=== PATIENT | male | born 1955 | race Caucasian/White ===

== ENCOUNTER 2022-07-29 16:20 | Outpatient (CLI) | payer MEDICARE, SELFPAY ==
--- NOTE | ~2022-07-29 | MR_ITS ---
EXAMINATION: MR knee RT wo con DATE: 07/29/2022 16:57 INDICATION: Chronic right knee pain. TECHNIQUE: Magnetic resonance imaging (MRI) of the right knee was performed without intravenous contr ast. Sequences included axial PD-weighted FS FSE, coronal PD-weighted FSE and PD-weighted FS FSE, sag ittal PD-weighted FSE, and sagittal T2-weighted FS FSE. COMPARISON: None. FINDINGS: Medial compartment: Oblique undersurface tear of the posterior horn, with apical tears of the posterior horn and body and subjacent mild focal marrow edema. Full-thickness shearing type cartilage defect on the medial femor al condyle in a background of moderate diffuse cartilage thinning. Mild osteophytosis. Lateral compartment: Intact meniscus. Partial-thickness signal abnormality in the tibial cartilage. Mild osteophytosis. Patellofemoral compartment: Near full-thickness cartilage loss on the medial facet and median ridge, with subjacent focal areas o f marrow edema. The retinacula are intact. Ligaments and tendons: ACL, PCL, LCL, and MCL are intact. Fluid signal along the tendons of the sartorius, gracilis, and luis alberto itendinosus. Remaining flexor and extensor tendons are intact. Fluid: Moderate volume joint fluid. Moderate Garcia's cyst. Osseous/other: No suspicious focal or diffuse marrow signal. Mid tibial plateau geode. IMPRESSION: 1. Oblique undersurface tear of the posterior horn, medial meniscus. Additional apical tears of the m edial meniscus at the posterior horn and body. 2. Shearing type cartilage defect on the medial femoral condyle. 3. Moderate chondromalacia patellae. 4. Mild medial flexor tenosynovitis. Reviewed, dictated and finalized at location K. IMPRESSION: 1. Oblique undersurface tear of the posterior horn, medial meniscus. Additional apical tears of the medial meniscus at the posterior horn and body. 2. Shearing type cartilage defect on the medial femoral condyle. 3. Moderate chondromalacia patellae. 4. Mild medial flexor tenosynovitis.
== END 2022-07-29 16:21 ==
PROVIDERS: PCP Family Medicine; Visit Provider Orthopaedic Surgery
DX: M65.861 Other synovitis and tenosynovitis, right lower leg (principal)
CPT/HCPCS: 73721